=== PATIENT | male | born 1965 | race Caucasian/White ===

== ENCOUNTER 2019-05-24 01:03 | Inpatient (IN) | payer OTHER ==
[2019-05-24] MEDS ORDERED: ONDANSETRON 4 MG INJ IV (05:00)
[2019-05-24] MEDS ORDERED: NACL 0.9% 3 ML SYG IV (05:00)
[2019-05-24] MEDS ORDERED: ALBUTEROL/IPRATROPIUM (NEB) 3 ML AMP HHN (05:00)
[2019-05-24] MEDS ORDERED: ACETAMINOPHEN 325 MG TAB PO (05:00)
[2019-05-24] MEDS: SOD CHLORIDE 0.9% 1,000 ML IV ×2 (05:21→13:33)
[2019-05-24 06:11] LABS: ADD MAN DIFF? NO
[2019-05-24 06:22] LABS: BASOPHILS % 0.4 % (0.0-2.0); EOSINOPHILS # 0.1 10^3/ul (0.0-0.5); EOSINOPHILS % 1.5 % (0.0-7.0); HEMATOCRIT 38.4 % (42.0-52.0); HEMOGLOBIN 13.2 g/dl (14.0-18.0); LYMPHOCYTES # 1.4 10^3/ul (0.8-2.9); LYMPHOCYTES % 21.1 % (15.0-51.0); MEAN CORPUSCULAR HEMOGLOBIN 32.7 pg (29.0-33.0); MEAN CORPUSCULAR HGB CONC 34.4 g/dl (32.0-37.0); MEAN PLATELET VOLUME 9.2 fl (7.4-10.4); MONOCYTE # 0.4 10^3/ul (0.3-0.9); MONOCYTES % 6.3 % (0.0-11.0); NEUTROPHIL # 4.7 10^3/ul (1.6-7.5); NEUTROPHILS % 70.6 % (39.0-77.0); PLATELET COUNT 130 10^3/UL (140-415); RED BLOOD COUNT 4.04 10^6/ul (4.70-6.10); RED CELL DISTRIBUTION WIDTH 11.9 % (11.5-14.5)
[2019-05-24 06:22] LABS: WHITE BLOOD COUNT 6.7 10^3/ul (4.8-10.8)
[2019-05-24 06:55] LABS: ALANINE AMINOTRANSFERASE 52 IU/L (13-69); ALBUMIN 3.3 g/dl (3.3-4.9); ALBUMIN/GLOBULIN RATIO 1.37; ALKALINE PHOSPHATASE 87 IU/L (42-121); ANION GAP 9 (5-13); ASPARTATE AMINO TRANSFERASE 53 IU/L (15-46); BILIRUBIN,INDIRECT 0.7 mg/dl (0-1.1); BILIRUBIN,TOTAL 0.7 mg/dl (0.2-1.3); BLOOD UREA NITROGEN 11 mg/dl (7-20); CALCIUM 8.3 mg/dl (8.4-10.2); CARBON DIOXIDE 28 mmol/L (21-31); CHLORIDE 107 mmol/L (97-110); CHOL/HDL RATIO 2.6 RATIO; CHOLESTEROL 137 mg/dl (100-200); CREATININE 0.72 mg/dl (0.61-1.24); Estimated GFR > 60 mL/min (>60); GLUCOSE 81 mg/dl (70-220); HDL CHOLESTEROL 52 mg/dl (28-71); LDL CHOLESTEROL,CALCULATED 72 mg/dl; MAGNESIUM 1.9 mg/dl (1.7-2.5); PHOSPHORUS 3.3 mg/dl (2.5-4.9); POTASSIUM 3.6 mmol/L (3.5-5.1); SODIUM 144 mmol/L (135-144); TOTAL PROTEIN 5.7 g/dl (6.1-8.1); TRIGLYCERIDES 63 mg/dl (0-149)
[2019-05-24 07:26] LABS: HEMOGLOBIN A1C 5.2 % (0-5.9)
[2019-05-24] MEDS: LORAZEPAM 2 MG INJ IV ×2 (08:50→20:20)
[2019-05-24] MEDS: CHLORDIAZEPOXIDE 25 MG CAP PO ×3 (08:50→20:23)
[2019-05-24] MEDS: MULTIVITAMINS 10 ML, THIAMINE 100 MG, FOLIC ACID 1 MG in SOD CHLORIDE 0.9% 1,000 ML IVPB (08:50)
[2019-05-24] MEDS: NICOTINE (21 MG/24 HR) PATCH TRANSDERM (15:24)
[2019-05-25] MEDS: LORAZEPAM 2 MG INJ IV ×7 (00:09→22:27)
[2019-05-25] MEDS: SOD CHLORIDE 0.9% 1,000 ML IV ×3 (00:11→12:46)
[2019-05-25 05:03] LABS: ADD MAN DIFF? NO
[2019-05-25 05:09] LABS: BASOPHILS % 0.2 % (0.0-2.0); EOSINOPHILS # 0.1 10^3/ul (0.0-0.5); HEMATOCRIT 37.7 % (42.0-52.0); HEMOGLOBIN 13.1 g/dl (14.0-18.0); LYMPHOCYTES # 1.4 10^3/ul (0.8-2.9); LYMPHOCYTES % 27.4 % (15.0-51.0); MEAN CORPUSCULAR HEMOGLOBIN 33.1 pg (29.0-33.0); MEAN CORPUSCULAR HGB CONC 34.7 g/dl (32.0-37.0); MEAN CORPUSCULAR VOLUME 95.2 fl (82.0-101.0); MEAN PLATELET VOLUME 9.7 fl (7.4-10.4); MONOCYTE # 0.2 10^3/ul (0.3-0.9); MONOCYTES % 4.5 % (0.0-11.0); NEUTROPHIL # 3.4 10^3/ul (1.6-7.5); NEUTROPHILS % 65.7 % (39.0-77.0); PLATELET COUNT 114 10^3/UL (140-415); RED BLOOD COUNT 3.96 10^6/ul (4.70-6.10); RED CELL DISTRIBUTION WIDTH 11.5 % (11.5-14.5)
[2019-05-25 05:09] LABS: WHITE BLOOD COUNT 5.1 10^3/ul (4.8-10.8)
[2019-05-25 05:33] LABS: ALANINE AMINOTRANSFERASE 55 IU/L (13-69); ALBUMIN 3.1 g/dl (3.3-4.9); ALKALINE PHOSPHATASE 60 IU/L (42-121); ANION GAP 6 (5-13); ASPARTATE AMINO TRANSFERASE 49 IU/L (15-46); BILIRUBIN,INDIRECT 1.7 mg/dl (0-1.1); BILIRUBIN,TOTAL 1.7 mg/dl (0.2-1.3); BLOOD UREA NITROGEN 7 mg/dl (7-20); CALCIUM 8.5 mg/dl (8.4-10.2); CARBON DIOXIDE 26 mmol/L (21-31); CHLORIDE 106 mmol/L (97-110); CREATININE 0.66 mg/dl (0.61-1.24); Estimated GFR > 60 mL/min (>60); GLUCOSE 93 mg/dl (70-220); MAGNESIUM 1.4 mg/dl (1.7-2.5); POTASSIUM 3.1 mmol/L (3.5-5.1); SODIUM 138 mmol/L (135-144); TOTAL PROTEIN 5.3 g/dl (6.1-8.1)
[2019-05-25 05:38] LABS: PHOSPHORUS 3.3 mg/dl (2.5-4.9)
[2019-05-25] MEDS: CHLORDIAZEPOXIDE 25 MG CAP PO ×3 (09:06→20:37)
[2019-05-25] MEDS: POTASSIUM CHLORIDE (SR) 20 MEQ TAB PO (09:06)
[2019-05-25] MEDS: NICOTINE (21 MG/24 HR) PATCH TRANSDERM (09:14)
[2019-05-25] MEDS: MAGNESIUM SULFATE 3 GM in DEXTROSE 5% 100 ML IVPB (09:22)
[2019-05-25] MEDS ORDERED: MAGNESIUM SULFATE 3 GM in DEXTROSE 5% 100 ML IVPB (10:30)
[2019-05-25] MEDS: MULTIVITAMINS 10 ML, THIAMINE 100 MG, FOLIC ACID 1 MG in SOD CHLORIDE 0.9% 1,000 ML IVPB (14:12)
[2019-05-26] MEDS: SOD CHLORIDE 0.9% 1,000 ML IV ×2 (00:30→04:46)
[2019-05-26 05:00] LABS: ADD MAN DIFF? NO
[2019-05-26 05:05] LABS: ABNORMAL IP MESSAGE 1; BASOPHILS % 0.4 % (0.0-2.0); EOSINOPHILS # 0.1 10^3/ul (0.0-0.5); EOSINOPHILS % 2.2 % (0.0-7.0); HEMATOCRIT 38.9 % (42.0-52.0); HEMOGLOBIN 13.4 g/dl (14.0-18.0); LYMPHOCYTES # 1.4 10^3/ul (0.8-2.9); LYMPHOCYTES % 27.6 % (15.0-51.0); MEAN CORPUSCULAR HEMOGLOBIN 32.6 pg (29.0-33.0); MEAN CORPUSCULAR HGB CONC 34.4 g/dl (32.0-37.0); MEAN CORPUSCULAR VOLUME 94.6 fl (82.0-101.0); MEAN PLATELET VOLUME 9.9 fl (7.4-10.4); MONOCYTE # 0.3 10^3/ul (0.3-0.9); MONOCYTES % 6.2 % (0.0-11.0); NEUTROPHIL # 3.2 10^3/ul (1.6-7.5); NEUTROPHILS % 63.4 % (39.0-77.0); PLATELET COUNT 99 10^3/UL (140-415); POSITIVE DIFF @See below; RED BLOOD COUNT 4.11 10^6/ul (4.70-6.10); RED CELL DISTRIBUTION WIDTH 11.7 % (11.5-14.5)
[2019-05-26 05:23] LABS: ANION GAP 5 (5-13); BLOOD UREA NITROGEN 5 mg/dl (7-20); CALCIUM 8.6 mg/dl (8.4-10.2); CARBON DIOXIDE 26 mmol/L (21-31); CHLORIDE 108 mmol/L (97-110); CREATININE 0.66 mg/dl (0.61-1.24); Estimated GFR > 60 mL/min (>60); GLUCOSE 112 mg/dl (70-220); POTASSIUM 3.6 mmol/L (3.5-5.1); SODIUM 139 mmol/L (135-144)
[2019-05-26 05:24] LABS: PHOSPHORUS 3.3 mg/dl (2.5-4.9)
[2019-05-26 05:24] LABS: MAGNESIUM 1.7 mg/dl (1.7-2.5)
[2019-05-26] MEDS: CHLORDIAZEPOXIDE 25 MG CAP PO (08:52)
[2019-05-26] MEDS: NICOTINE (21 MG/24 HR) PATCH TRANSDERM (08:53)
[2019-05-26] MEDS ORDERED: CHLORDIAZEPOXIDE 25 MG CAP PO (13:00)
== END 2019-05-26 11:18 | disposition home or self-care (01) | DRG 897 ==
LOC: PP2 01:03 → TEL 01:03 → MS1 23:45
DX: F10.129 Alcohol abuse with intoxication, unspecified (principal); F17.200 Nicotine dependence, unspecified, uncomplicated
CPT/HCPCS: 80048; 80053; 80061; 83036; 83735; 84100; 85025; 87081

== ENCOUNTER 2019-06-12 21:05 | Emergency (ER) | payer OTHER ==
[2019-06-12] MEDS: LIDOCAINE/MYLANTA 40 ML BTL PO (22:31)
== END 2019-06-12 23:04 | disposition home or self-care (01) ==
LOC: E/R 21:05
DX: F10.10 Alcohol abuse, uncomplicated (principal); F17.210 Nicotine dependence, cigarettes, uncomplicated
CPT/HCPCS: 93005; 99283-25; Z7502